=== PATIENT | male | born 1950 | race Caucasian/White ===

== ENCOUNTER → 2018-10-26 | Outpatient (CLI) | payer MEDICARE, BC | END | disposition home or self-care (01) | LOC: CFH 13:29 | PROVIDERS: ATTEND Student in an Organized Health Care Education/Training Program | DX: N28.1 Cyst of kidney, acquired (principal); M51.37 Other intervertebral disc degeneration, lumbosacral region; N20.0 Calculus of kidney; K57.30 Diverticulosis of large intestine without perforation or abscess without bleeding; M47.817 Spondylosis without myelopathy or radiculopathy, lumbosacral region | CPT/HCPCS: 74176 ==

== ENCOUNTER 2019-07-28 10:38 | Outpatient (CLI) | payer MEDICARE, BC | END 2019-07-28 23:59 | disposition home or self-care (01) | LOC: CVU 10:38 → CFH 23:59 | PROVIDERS: ATTEND Physician Assistant Medical | DX: R07.9 Chest pain, unspecified (principal); R01.1 Cardiac murmur, unspecified; I10 Essential (primary) hypertension | CPT/HCPCS: 78452; 93017; 93306; A9502 ==

== ENCOUNTER 2020-12-22 09:53 | Outpatient (CLI) | payer MEDICARE, BC | END 2020-12-22 23:59 | disposition home or self-care (01) | LOC: RAD 09:53 | PROVIDERS: ATTEND Student in an Organized Health Care Education/Training Program | DX: C61 Malignant neoplasm of prostate (principal) | CPT/HCPCS: 78306; A9503 ==

== ENCOUNTER 2021-04-20 17:02 | Day surgery (SDC) | payer MEDICARE, BC ==
[~2021-04-20] VITALS: Ht 172.7 cm; Wt 229.7 kg
[~2021-04-20 17:02] MED LIST: CHLORHEXIDINE 15 ML UDC ONE; OMNIPAQUE 350 MG/ML, 50 ML BOTTLE ONE
[2021-04-20] MEDS ORDERED: LACTATED RINGERS 1,000 ML IV SCH (18:00)
[2021-04-20 18:04] VITALS: BP 160/84
[2021-04-20 18:13] LABS: BASOPHILS % (AUTO) 1 % (0-1); EOSINOPHILS % (AUTO) 3 % (1-7); LYMPHOCYTES % (AUTO) 8 % (22-44); MEAN PLATELET VOLUME 7.9 fL (7.4-10.4); MONOCYTES % (AUTO) 11 % (2-9); NEUTROPHILS % (AUTO) 78 % (42-75); PLATELET COUNT 196 x10^3/uL (130-400); RED BLOOD COUNT 3.83 x10^6/uL (4.38-5.82); RED CELL DISTRIBUTION WIDTH 14.9 % (9.4-14.8)
[2021-04-20 18:19] LABS: ALANINE AMINOTRANSFERASE 41 U/L (12-78); ALBUMIN 2.9 g/dL (3.4-5.0); ANION GAP 7 mmol/L (5-15); CALCIUM 9.2 mg/dL (8.5-10.1); CHLORIDE 105 mmol/L (98-107); CREATININE 1.26 mg/dL (0.7-1.3); INTERNATIONAL NORMALIZED RATIO 0.93 (0.93-1.1)
[2021-04-20] MEDS ORDERED: VALS160T27 PO (18:20)
[2021-04-20] MEDS ORDERED: OXYC5CAP2 PO (18:20)
[2021-04-20] MEDS ORDERED: ONDA4TAB7 PO (18:20)
[2021-04-20] MEDS ORDERED: GLIM2TAB7 PO (18:20)
[2021-04-20] MEDS ORDERED: SEMA1PEN3 SQ (18:20)
[2021-04-20] MEDS ORDERED: OMEG1CAP34 PO (18:20)
[2021-04-20] MEDS ORDERED: AMLO-211 PO (18:20)
[2021-04-20] MEDS ORDERED: ATOR40TA78 PO (18:20)
[2021-04-20 18:22] LABS: ALKALINE PHOSPHATASE 93 U/L (45-117); BILIRUBIN,TOTAL 0.4 mg/dL (0.2-1.0); TOTAL PROTEIN 7.2 g/dL (6.4-8.2)
[2021-04-20] MEDS ORDERED: CHLORHEXIDINE 15 ML UDC PO ONE (18:30)
[2021-04-20] MEDS ORDERED: MIDAZOLAM 1 MG/ML, 2ML ONE (18:44)
[2021-04-20] MEDS ORDERED: FENTANYL PF 100 MCG/2ML ONE (18:44)
[2021-04-20] MEDS ORDERED: PROPOFOL 10 MG/ML, 20ML ONE (18:55)
[2021-04-20] MEDS ORDERED: CEFAZOLIN 1,000 MG ONE (18:55)
[2021-04-20] MEDS ORDERED: FENTANYL PF 100 MCG/2ML IV PRN (19:30)
[2021-04-20] MEDS ORDERED: HYDROmorphone 1 MG/ML, 1ML INJ IVPush PRN (19:30)
[2021-04-20] MEDS ORDERED: OXYcodone 5 MG/5 ML ORAL.SOL UDC PO PRN (19:30)
[2021-04-20] MEDS ORDERED: KETOROLAC 30 MG/1 ML IV PRN ×2 (19:30→20:30)
[2021-04-20] MEDS ORDERED: ACETAMINOPHEN 325 MG TABLET PO PRN (19:30)
[2021-04-20] MEDS ORDERED: ONDANSETRON 2MG/ML, 2ML IVPush PRN (19:30)
[2021-04-20] MEDS ORDERED: DIAZEPAM 5 MG/ML, 2ML IVPush PRN (19:30)
[2021-04-20] MEDS ORDERED: hydrALAzine 20 MG/ML, 1ML IV PRN (19:30)
[2021-04-20] MEDS ORDERED: MEPERIDINE/PF 25MG/0.5ML IVPush PRN (19:30)
[2021-04-20] MEDS ORDERED: METOPROLOL 1 MG/ML, 5ML IV PRN (19:30)
[2021-04-20] MEDS ORDERED: ONDANSETRON 2MG/ML, 2ML IV PRN (20:30)
[2021-04-20] MEDS ORDERED: OXYcodone/APAP 5/325MG TABLET PO PRN (20:30)
[2021-04-20] MEDS ORDERED: MEPERIDINE/PF 25MG/ML,1ML ONE (20:42)
== END 2021-04-20 21:57 | disposition home or self-care (01) ==
LOC: OR 17:02
PROVIDERS: ATTEND Urology
DX: N20.0 Calculus of kidney (principal); N52.9 Male erectile dysfunction, unspecified; I10 Essential (primary) hypertension; E78.5 Hyperlipidemia, unspecified; E11.9 Type 2 diabetes mellitus without complications; G47.33 Obstructive sleep apnea (adult) (pediatric); Z79.01 Long term (current) use of anticoagulants; Z79.84 Long term (current) use of oral hypoglycemic drugs; Z79.891 Long term (current) use of opiate analgesic; Z79.899 Other long term (current) drug therapy; Z85.46 Personal history of malignant neoplasm of prostate; Z83.3 Family history of diabetes mellitus; Z84.1 Family history of disorders of kidney and ureter
CPT/HCPCS: 52356; 74420; 80053; 82360; 82962; 85025; 85610; 88300; 93005; C1758; C1769; C2617; J0690; J2250; J2704; J3010; J7120; Q9967

== ENCOUNTER 2021-05-05 06:11 | Day surgery (SDC) | payer MEDICARE, BC ==
[~2021-05-05] VITALS: Ht 172.7 cm; Wt 103.7 kg
[~2021-05-05 06:11] MED LIST changes: +AMLO-211 PO; +ATOR40TA78 PO; -CHLORHEXIDINE 15 ML UDC ONE; +GLIM2TAB7 PO; +OMEG1CAP34 PO; -OMNIPAQUE 350 MG/ML, 50 ML BOTTLE ONE; +ONDA4TAB7 PO; +OXYC5CAP2 PO; +SEMA1PEN3 SQ; +VALS160T27 PO
[2021-05-05 06:25] VITALS: BP 120/79
[2021-05-05] MEDS ORDERED: OPIUM/BELLADONNA SUPP.RECT 16.2-30 MG PR ONE (10:05)
[2021-05-05] MEDS ORDERED: FENTANYL PF 100 MCG/2ML IV PRN (11:00)
[2021-05-05] MEDS ORDERED: MEPERIDINE/PF 25MG/0.5ML IVPush PRN (11:00)
[2021-05-05] MEDS ORDERED: HYDROmorphone 1 MG/ML, 1ML INJ IV PRN (11:00)
[2021-05-05] MEDS ORDERED: KETOROLAC 30 MG/1 ML IV PRN (11:00)
[2021-05-05] MEDS ORDERED: ALBUTEROL SULFATE 2.5 MG/3 ML NPPB PRN (11:00)
[2021-05-05] MEDS ORDERED: LABETALOL 5MG/ML, 20ML IV PRN (11:00)
[2021-05-05] MEDS ORDERED: PROMETHAZINE 25 MG/ML, 1ML IV PRN (11:00)
[2021-05-05] MEDS ORDERED: DIAZEPAM 5 MG/ML, 2ML IV PRN ×2 (11:00)
[2021-05-05] MEDS ORDERED: OXYcodone 5 MG/5 ML ORAL.SOL UDC PO PRN (11:00)
[2021-05-05] MEDS ORDERED: METOCLOPRAMIDE 5 MG/ML, 2ML IV PRN (11:00)
[2021-05-05] MEDS ORDERED: PLEASE ENTER HEIGHT AND WEIGHT MC SCH (11:00)
[2021-05-05] MEDS ORDERED: ONDANSETRON 2MG/ML, 2ML IVPush PRN (11:00)
[2021-05-05] MEDS ORDERED: hydrALAzine 20 MG/ML, 1ML IV PRN (11:00)
[2021-05-05 11:48] VITALS: BP 143/82
[2021-05-05 12:15] VITALS: BP 141/75
[2021-05-05 16:02] VITALS: BP 140/82
== END 2021-05-05 16:43 | disposition home or self-care (01) ==
LOC: UNDOADMIN 06:11 → OUT 06:11 → 4NE 06:11 → UNDODISIN 16:43 → OUT 16:43 → EDSTATUS 05-10 11:09
PROVIDERS: ATTEND Student in an Organized Health Care Education/Training Program
DX: N20.2 Calculus of kidney with calculus of ureter (principal); N52.9 Male erectile dysfunction, unspecified; I10 Essential (primary) hypertension; E11.9 Type 2 diabetes mellitus without complications; Z20.822 Contact with and (suspected) exposure to COVID-19; Z79.84 Long term (current) use of oral hypoglycemic drugs; Z79.891 Long term (current) use of opiate analgesic; Z79.899 Other long term (current) drug therapy; Z85.46 Personal history of malignant neoplasm of prostate; Z98.52 Vasectomy status; Z83.3 Family history of diabetes mellitus; Z84.1 Family history of disorders of kidney and ureter; Z82.49 Family history of ischemic heart disease and other diseases of the circulatory system
CPT/HCPCS: 52356; 82360; 87635; 88300; C1769; C2617; J3360; G0378